=== PATIENT | male | born 1950 | race Asian ===

== ENCOUNTER 2020-10-15 14:48 | Emergency (ER) | payer OTHER ==
[~2020-10-15] VITALS: Ht 160 cm; Wt 67.3 kg
[2020-10-15 14:53] VITALS: BP 134/72
[2020-10-15] MEDS ORDERED: DULA1.5P SQ (15:29)
== END 2020-10-15 17:46 | disposition home or self-care (01) ==
LOC: EMS 14:48
DX: K40.90 Unilateral inguinal hernia, without obstruction or gangrene, not specified as recurrent (principal); E11.9 Type 2 diabetes mellitus without complications
CPT/HCPCS: Z7502